=== PATIENT | male | born 1980 ===

== ENCOUNTER 2016-12-17 19:54 | Emergency (ER) | payer SELFPAY ==
[2016-12-18 02:01] VITALS: BP 113/74
[2016-12-18] MEDS ORDERED: TYLENOL #3 PO ONE (02:15)
[2016-12-18] MEDS ORDERED: MOTRIN PO ONE (02:16)
--- NOTE | 2016-12-18 02:20 | Emergency Department Report ---
ED Back Pain/Injury HPI - General Chief Complaint: Fall Stated Complaint: CP Time Seen by Provider: 12/18/16 02:01 Source: patient Limitations: No Limitations - History of Present Illness Initial Comments: 36-year-old male presents with complaint of left-sided chest pain for 3 weeks. Patient states that approximately 3 weeks ago he fell onto his left side while walking on street. Complaining of persistent pain in chest since then. Patient states that laughing or taking deep breaths is somewhat painful. Denies any loss of consciousness, denies any head trauma associated with fall. On exam patient is fully lucid no signs of respiratory distress no wheezing no stridor no retractions. Patient states that it hurts to press against his left side chest wall underneath his shoulder. MD Complaint: back injury, fall Onset/Timin -: week(s) Similar Symptoms Previously: No Place: street Radiation: none Severity: moderate Severity scale (0 -10): 6 Quality: burning, aching Consistency: intermittent Improves With: none Worsens With: none Context: fall Associated Symptoms: denies other symptoms - Related Data Previous Rx's Medication Instructions Recorded Last Taken Type Acetaminophen/Codeine [Tylenol 1 tab PO Q6H PRN #6 tab 12/18/16 Unknown Rx /Codeine # 3 tab] Naproxen [Naprosyn TAB] 500 mg PO BID PRN #20 tablet 12/18/16 Unknown Rx Allergies Allergy/AdvReac Type Severity Reaction Status Date / Time No Known Allergies Allergy Unverified 12/17/16 19:59 ED Review of Systems ROS: Stated complaint: CP Other details as noted in HPI Constitutional: denies: chills, fever Eyes: denies: eye pain, eye discharge, vision change ENT: denies: ear pain, throat pain Respiratory: denies: cough, shortness of breath, wheezing Cardiovascular: as per HPI, chest pain (chest wall pain left side x2 weeks). denies: palpitations Endocrine: no symptoms reported Gastrointestinal: denies: abdominal pain, nausea, diarrhea Genitourinary: denies: urgency, dysuria Musculoskeletal: denies: back pain, joint swelling, arthralgia Skin: denies: rash, lesions Neurological: denies: headache, weakness, paresthesias Psychiatric: denies: anxiety, depression Hematological/Lymphatic: denies: easy bleeding, easy bruising ED Past Medical Hx - Past Medical History Previous Medical History?: No - Surgical History Past Surgical History?: No - Social History Smoking Status: Current Every Day Smoker Substance Use Type: Alcohol, Marijuana - Medications Home Medications: Home Medications Medication Instructions Recorded Confirmed Last Taken Type Acetaminophen/Codeine [Tylenol 1 tab PO Q6H PRN #6 tab 12/18/16 Unknown Rx /Codeine # 3 tab] Naproxen [Naprosyn TAB] 500 mg PO BID PRN #20 tablet 12/18/16 Unknown Rx ED Physical Exam - General Limitations: No Limitations General appearance: alert, in no apparent distress - Head Head exam: Present: atraumatic, normocephalic - Eye Eye exam: Present: normal appearance, PERRL, EOMI - ENT ENT exam: Present: mucous membranes moist - Neck Neck exam: Present: normal inspection, full ROM - Respiratory Respiratory exam: Present: normal lung sounds bilaterally, chest wall tenderness (reproducible chest wall pain along the left midaxillary line on palpation). Absent: respiratory distress - Cardiovascular Cardiovascular Exam: Present: regular rate, normal rhythm. Absent: systolic murmur, diastolic murmur, rubs, gallop - GI/Abdominal GI/Abdominal exam: Present: soft (abdomen soft nontender nondistended all 4 quadrants), normal bowel sounds - Rectal Rectal exam: Present: deferred - Extremities Exam Extremities exam: Present: normal inspection - Back Exam Back exam: Present: normal inspection - Neurological Exam Neurological exam: Present: alert, oriented X3 - Psychiatric Psychiatric exam: Present: normal affect, normal mood - Skin Skin exam: Present: warm, dry, intact, normal color. Absent: rash ED Course Vital Signs 12/17/16 12/17/16 12/18/16 19:56 19:59 02:00 Temperature 97.4 F L 97.4 F L 98.2 F Pulse Rate 82 84 80 Respiratory 18 20 16 Rate Blood Pressure 140/74 140/74 Blood Pressure 113/74 [Right] O2 Sat by Pulse 98 98 100 Oximetry ED Medical Decision Making - Medical Decision Making A/P: Musculoskeletal chest pain, costochondritis 1-x-ray shows no fracture, no pneumothorax. Patient's vital signs stable including oxygen saturation 2-NSAIDs when necessary 3-primary care follow-up Critical care attestation.: If time is entered above; I have spent that time in minutes in the direct care of this critically ill patient, excluding procedure time. ED Disposition Clinical Impression: Left-sided chest wall pain Disposition: DC- TO HOME OR SELFCARE Is pt being admited?: No Does the pt Need Aspirin: No Condition: Stable Instructions: Chest Pain (ED), Costochondritis (ED) Prescriptions: Acetaminophen/Codeine [Tylenol /Codeine # 3 tab] 1 tab PO Q6H PRN #6 tab PRN Reason: Pain Naproxen [Naprosyn TAB] 500 mg PO BID PRN #20 tablet PRN Reason: Pain Referrals: [facility] [Outside] - 3-5 Days [facility] [Outside] - 3-5 Days Forms: Work/School Release Form(ED) Time of Disposition: 02:19
--- NOTE | 2016-12-18 03:56 | XRay Report ---
FINAL REPORT EXAM: XR RIBS UNI W PA CHEST 3+V LT HISTORY: Status post fall, with pain. TECHNIQUE: A single frontal portable radiograph of the chest and two additional views of the left ribs were obtained. No prior studies are available for comparison. FINDINGS: The cardiac silhouette and mediastinum are within normal limits. The lungs are clear bilaterally, without focal infiltrate or effusion. There is no pneumothorax. No definite displaced left rib fracture is seen. No other osseous abnormalities are identified. IMPRESSION: 1. No active disease seen in the chest. 2. No definite displaced left rib fracture identified. No pleural effusion or pneumothorax.
== END 2016-12-18 03:14 | disposition home or self-care (01) ==
LOC: ED 19:54
DX: R07.89 Other chest pain (principal); F17.210 Nicotine dependence, cigarettes, uncomplicated; F12.10 Cannabis abuse, uncomplicated
CPT/HCPCS: 99283